=== PATIENT | male | born 1985 | race Caucasian/White ===

== ENCOUNTER 2017-01-27 20:17 | Emergency (ER) | payer OTHER ==
[2017-01-27 20:45] VITALS: BP 174/115; PULSE 57; RESP 18; TEMP 99.2
[2017-01-27] MEDS ORDERED: BUPIVACAINE (PF) 0.5% 30 ML VIAL SQ STA (20:52)
[2017-01-27] MEDS ORDERED: ACET/COD 300 MG/30 MG STARTER PACK 6 TAB BTL PO STA (20:57)
[2017-01-27] MEDS ORDERED: PENICILLIN VK 500MG STARTER 4 TAB BTL PO STA (20:57)
--- NOTE | 2017-01-27 20:58 | ED ---
ENT HPI - General Chief complaint: Dental/Oral Stated complaint: Dental pain Time Seen by Provider: 01/27/17 20:46 Source: patient, RN notes reviewed, old records reviewed Mode of arrival: ambulatory Limitations: no limitations - History of Present Illness Initial comments: Due to male chief complaint of pain over tooth #17, 18 1516. Patient reports that they're chipped. He states that the pavement it for quite some time, Taisha some swelling and irritation around the past 3 days. He reports that he recently got insurance and plans to see a dentist within the next few days. He is concerned there may be an infection. Denies any fever or chills. Denies any trismus. Denies any nausea or vomiting or foul taste in the mouth. - Related Data Previous Rx's Medication Instructions Recorded Acetaminophen Tab [Tylenol] 1,000 mg PO Q6HR 5 Days 01/01/14 Amoxicillin 500 mg PO Q8H #10 day 01/01/14 Ibuprofen [Motrin] 600 mg PO Q6HR PRN #40 day 01/01/14 Ondansetron [Zofran] 4 mg PO Q8HR PRN #15 tab 01/01/14 HYDROcodone/APAP 5-325MG [[place] 1 - 2 tab PO Q6HR PRN #20 tab 01/27/17 5-325] Penicillin V Potassium [Pen Vee K] 500 mg PO QID #40 tab 01/27/17 Allergies Allergy/AdvReac Type Severity Reaction Status Date / Time No Known Allergies Allergy Verified 01/27/17 20:45 Review of Systems ROS Statement: Those systems with pertinent positive or pertinent negative responses have been documented in the HPI. ROS Other: All systems not noted in ROS Statement are negative. Past Medical History Past Medical History: Asthma History of Any Multi-Drug Resistant Organisms: None Reported Past Surgical History: No Surgical Hx Reported Past Psychological History: Depression Smoking Status: Current every day smoker Past Alcohol Use History: Occasional Past Drug Use History: Marijuana General Exam - General Exam Comments Initial Comments: Well-appearing 31-year-old male. No distress. General: Well appearing, well nourished, in no distress. Oriented x 3, normal mood and affect . Ambulating without difficulty. Skin: Good turgor, no rash, unusual bruising or prominent lesions Hair: Normal texture and distribution. HEENT: Head: Normocephalic, atraumatic, no visible or palpable masses, depressions, or scaring. Eyes: Visual acuity intact, conjunctiva clear, sclera non-icteric, EOM intact, PERRL. Ears: EACs clear, TMs translucent & cone of light visualized. hearing intact. Nose: No external lesions, mucosa non-inflamed, septum and turbinates normal Mouth: Mucous membranes moist, no mucosal lesions. Teeth/Gums: No obvious caries or periodontal disease. No gingival inflammation or significant resorption. Pharynx: Patient has poor dentition with multiple dental caries. Patient has fractured tooth #18 and 15. Neck: Supple, without lesions, bruits, or adenopathy, thyroid non-enlarged and non-tender Heart: No cardiomegaly or thrills; regular rate and rhythm, no murmur or gallop Lungs: Clear to auscultation and percussion Abdomen: Bowel sounds normal, no tenderness, organomegaly, masses, or hernia Back: Spine normal without deformity or tenderness, no CVA tenderness Extremities: No amputations or deformities, cyanosis, edema or varicosities, peripheral pulses intact Musculoskeletal: Normal gait and station. No misalignment, asymmetry, crepitation, defects, tenderness, masses, effusions, decreased range of motion, instability, atrophy or abnormal strength or tone in the head, neck, spine, ribs , pelvis or extremities. Neurologic: CN 2-12 normal. Sensation to pain, touch. No pathologic reflexes. Psychiatric: Oriented X3, intact recent and remote memory, Limitations: no limitations Course Vital Signs 01/27/17 20:44 Temperature 99.2 F Pulse Rate 57 L Respiratory 18 Rate Blood Pressure 174/115 O2 Sat by Pulse 99 Oximetry Medical Decision Making - Medical Decision Making 12-year-old male chief complaint of upper and lower left-sided dental pain. Patient has fractured tooth #18 and 15. Patient may have concern for a possible small abscess starting around tooth #18. Patient will be on Pen-Vee K and given pain medication. Patient also was given a bupivacaine injection. Patient agrees to following up with dentist. Patient has history plan will comply. Return parameters were discussed. Disposition Clinical Impression: Pain, dental, Fracture, tooth Disposition: HOME SELF-CARE Condition: Good Instructions: Toothache (ED) Additional Instructions: [facility] [address] [place] [address] [phone] (existing clients only) For new clients: [phone] 1st consult: $50 (includes Xrays) Usually 30% less then private dentist for visits after. [employer] Have to pay $50 for Xrays anmd rest is covered. [phone] Patient advised to take antibiotics as directed. Prescriptions: HYDROcodone/APAP 5-325MG [[place] 5-325] 1 - 2 tab PO Q6HR PRN #20 tab PRN Reason: Pain Penicillin V Potassium [Pen Vee K] 500 mg PO QID #40 tab Referrals: None,Stated [Primary Care Provider] - 1-2 days May Higgins MD [STAFF PHYSICIAN] - 1-2 days Time of Disposition: 20:55
== END 2017-01-27 21:13 | disposition home or self-care (01) ==
LOC: EC 20:17
DX: S02.5XXA Fracture of tooth (traumatic), initial encounter for closed fracture (principal); F17.200 Nicotine dependence, unspecified, uncomplicated
CPT/HCPCS: 96372; 99283

== ENCOUNTER 2017-09-11 18:29 | Emergency (ER) | payer OTHER ==
[2017-09-11 18:40] VITALS: BP 154/92; PULSE 64; RESP 18; TEMP 97.4
[2017-09-11] MEDS ORDERED: PROPARACAINE 0.5% OPHTH DROPS 15 ML BTL RIGHT EYE STA (19:14)
[2017-09-11] MEDS ORDERED: DIPH,PERTUS(ACELL)TETVAC-LF 0.5 ML VIAL IM ONE (19:36)
--- NOTE | 2017-09-11 19:36 | ED ---
Eye Problem HPI - General Chief complaint: Eye Problems Stated complaint: Poss metal in eye Time Seen by Provider: 09/11/17 19:14 Source: patient, RN notes reviewed Mode of arrival: ambulatory Limitations: no limitations - History of Present Illness Initial comments: This is a 32-year-old male who presents to the emergency department with chief complaint of possible metal in eye. Patient states that at approximately 5 PM this evening he was working in his auto shop. He states that he was using a drill and felt like a metal piece became stuck in his right eye. He reports foreign body sensation in pain. Denies any vision changes. Denies fever, chills , chest pain, shortness of breath, abdominal pain, nausea or vomiting, constipation or diarrhea, dysuria or hematuria, numbness or tingling, headache or vision changes. - Related Data Previous Rx's Medication Instructions Recorded Acetaminophen Tab [Tylenol] 1,000 mg PO Q6HR 5 Days tablet 01/01/14 Amoxicillin 500 mg PO Q8H #10 day 01/01/14 Ibuprofen [Motrin] 600 mg PO Q6HR PRN #40 day 01/01/14 Ondansetron [Zofran] 4 mg PO Q8HR PRN #15 tab 01/01/14 HYDROcodone/APAP 5-325MG [[place] 1 - 2 tab PO Q6HR PRN #20 tab 01/27/17 5-325] Penicillin V Potassium [Pen Vee K] 500 mg PO QID #40 tab 01/27/17 Allergies Allergy/AdvReac Type Severity Reaction Status Date / Time No Known Allergies Allergy Verified 09/11/17 18:40 Review of Systems ROS Statement: Those systems with pertinent positive or pertinent negative responses have been documented in the HPI. ROS Other: All systems not noted in ROS Statement are negative. Past Medical History Past Medical History: Asthma History of Any Multi-Drug Resistant Organisms: None Reported Past Surgical History: No Surgical Hx Reported Past Psychological History: Depression Smoking Status: Current every day smoker Past Alcohol Use History: Occasional Past Drug Use History: Marijuana General Exam - General Exam Comments Initial Comments: General: Awake and alert, well-developed; in no apparent distress. HEENT: Head atraumatic, normocephalic. Pupils are equal, round and reactive to light. Extraocular movements intact. Oropharynx moist without erythema or exudate. Small piece of metal noted at 9:00 in relation to the iris. On fluorescein staining, small pinpoint corneal abrasion is noted. No rust ring noted. Negative Praveen's test. No evidence of foreign body on lid eversion. Neck: Supple. Normal ROM. Cardiovascular: Regular rate and rhythm. No murmurs, rubs or gallops. Chest symmetrical. Respiratory: Lungs clear to auscultation bilaterally. No wheezes, rales or rhonchi. Normal respiratory effort with no use of accessory muscles. Musculoskeletal: Normal ROM, no tenderness bilateral upper and lower extremities. Ambulating normally. Skin: [place], warm and dry without rashes or lesions. Neurological: Alert and oriented x3. CN II-XII grossly intact. Speech is fluent and answers are appropriate. No focal neuro deficits. Psychiatric: Normal mood and affect. No overt signs of depression or anxiety noted. Limitations: no limitations Course Vital Signs 09/11/17 18:37 Temperature 97.4 F L Pulse Rate 64 Respiratory 18 Rate Blood Pressure 154/92 O2 Sat by Pulse 100 Oximetry Medical Decision Making - Medical Decision Making This is a 32-year-old male who presents to the emergency department with chief complaint of possible metal in eye. Patient complained of foreign body sensation. A small metal john was noted at 9:00 in relation to the iris. It was easily removed with the end of a Q-tip. On fluorescein staining, there is a small corneal abrasion. No rust ring noted. Patient will be started on antibiotic eyedrops. He was made up-to-date with tetanus vaccination. He is provided with ophthalmology follow-up if no improvement or worsening in his symptoms. Patient is in no acute distress and will be discharged home. He is in agreement with plan and voices understanding. All questions were answered. Disposition Clinical Impression: Corneal foreign body Disposition: HOME SELF-CARE Condition: Good Instructions: Tobramycin (Into the eye), Corneal Abrasion (ED), Eye Foreign Body (ED) Additional Instructions: Please follow up with primary care provider within 1-2 days. Return to emergency department if symptoms should worsen or any concerns arise. Please take medications as prescribed. Please follow up with Dr. Cook, ophthalmology if any worsening or no improvement in symptoms. Referrals: Shelley Wallace MD [Primary Care Provider] - 1-2 days Charlotte Cook MD [STAFF PHYSICIAN] - 1-2 days Time of Disposition: 19:40
[2017-09-11] MEDS ORDERED: TOBRAMYCIN 0.3% OPHTH DROPS 5 ML BTL RIGHT EYE STA (19:39)
== END 2017-09-11 20:05 | disposition home or self-care (01) ==
LOC: EC 18:29
DX: T15.01XA Foreign body in cornea, right eye, initial encounter (principal); F17.200 Nicotine dependence, unspecified, uncomplicated; Z23 Encounter for immunization
CPT/HCPCS: 90471; 90715; 99283

== ENCOUNTER 2017-12-16 17:12 | Emergency (ER) | payer OTHER ==
[2017-12-16 17:17] VITALS: TEMP 98.1
--- NOTE | 2017-12-16 17:58 | XR ---
EXAMINATION TYPE: XR cervical spine comp DATE OF EXAM: 12/16/2017 COMPARISON: NONE HISTORY: Neck pain TECHNIQUE: 6 views FINDINGS: Cervical vertebra have normal spacing and alignment. Posterior elements are intact. Neural foramina are widely patent. Atlantoaxial facet joint is normal. There are no cervical ribs. IMPRESSION: Normal cervical spine.
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
[2017-12-16 18:15] VITALS: BP 147/110; PULSE 88; RESP 18
== END 2017-12-16 18:15 | disposition home or self-care (01) ==
LOC: EC 17:12
DX: T23.201A Burn of second degree of right hand, unspecified site, initial encounter (principal); M79.1 Myalgia; M54.2 Cervicalgia; F17.200 Nicotine dependence, unspecified, uncomplicated; V43.52XA Car driver injured in collision with other type car in traffic accident, initial encounter; W22.10XA Striking against or struck by unspecified automobile airbag, initial encounter; Y92.89 Other specified places as the place of occurrence of the external cause
CPT/HCPCS: 72050; 99284